=== PATIENT | male | born 1965 | race Caucasian/White ===

== ENCOUNTER 2016-10-25 07:41 | Day surgery (SDC) | payer OTHER ==
[~2016-10-25] VITALS: Ht 190.5 cm; Wt 104.3 kg
[~2016-10-25 07:41] MED LIST: 0.9% Sodium Chloride 1,000 ML IV SCH; Sodium Chloride LOK Flush 10 mL Syringe IV PRN; fentaNYL-PF 50 mCg/mL 2 mL Inj IVPUSH PRN
[2016-10-25] MEDS ORDERED: Propofol 10,000 mCg/mL 20 mL Inj ONE (07:42)
[2016-10-25] MEDS ORDERED: LISI1TAB7 PO (08:01)
[2016-10-25 08:04] VITALS: BP 142/87; PULSE 81; RESP 14; O2SAT 96
--- NOTE | 2016-10-25 09:38 | PCM.HPANE ---
Patient Data Date of Service: October 25, 2016 Surgeon Admitting Provider: Attending Provider:Antoni Sellers MD Primary Care Physician:Oumar Zhou MD Other Provider: Reason for Visit Screening Ht/WT & BMI Height (Feet): 6 Height (Inches): 3 Weight (Kilograms): 104.33 Body Mass Index 28.00 Allergies Coded Allergies: erythromycin base (Verified Allergy, Unknown, 10/23/16) Past Anesthesia History Anesthesia History: Denies:: Abnormal Airway, Difficult Intubation Diabetes History Hx Diabetes?: No MRSA MRSA: No Medications Hypertension Medication: Yes Home Meds Incl Beta Marisol: No Reported Medications Lisinopril / HCTZ 10-12.5 mg 1 Each Tablet1 Each PO DAILY Ref 0 10/25/16 History History of ENT Problems?: No HEENT History: Denies:: Abnormal Airway Difficult Intubation Hearing Problem Denture Type: None Teeth Condition: Within Normal Limits Hx of Heart Problems?: Yes Cardiovascular History: Positive for:: Hypertension Hx of Respiratory Problem?: No Respiratory History: Denies:: Use of C-PAP Machine Hx Neurologic Problems?: No Neurological History: Denies:: CVA Hx of GI Problems?: No Hx of Problems?: No HX of Peritoneal Dialysis: No Hx Musculoskeletal Problems?: No Hx of Psycho/Social Problems?: No Hx Surgeries?: Yes (hernia) Hx Any Other Health Problems?: Yes Hx Diabetes: No Hx Alcohol Use: Yes Stop/Bang Treated for Sleep Apnea?: No Do You Have a CPAP Machine?: No S-Snoring: Do You Snore Loudly: No T-Tired: feel tired, fatigued: No O-Obsered: Observed not breath: No P-Blood Pressure: treated: Yes B- Body Mass Index > 35 kg/m2: No A- Age over 50: Yes N- Neck Large Circumference: No G- Gender Male: Yes TERRELL Total Score: 3 Risk Assessment Category Category 1A: Patient has history of documented sleep apnea, and HAS NOT received any narcotic, sedative or anesthesia administration during this stay. Category 1B: Patient has history of documented sleep apnea, and HAS received any narcotic , sedative or anesthesia administration during this stay Category 2: Patient has SUSPECTED Obstructive Sleep Apnea, and HAS received any narcotic , sedative or anesthesia administration during this stay. Category 3: Patient has SUSPECTED Obstructive Sleep Apnea and HAS NOT received narcotic, sedative or anesthesia administration during this stay. Category 4: Outpatient in Procedural Areas with known sleep apnea or who screen positive for High Risk via the STOP/BANG questionnaire. Exam Exam Vital Signs Vital Signs Date Time Temp Pulse Resp B/P Pulse Ox O2 Delivery O2 Flow Rate FiO2 10/25/16 08:04 81 14 142/87 96 Room Air General Appearance: Cooperative HEENT/AIRWAY: Neck Movement (Normal) Lungs: Clear to Auscultation, Normal Air Movement Heart: Regular Rate/Rhythm, Normal S1, Normal S2 Meds/Labs/Diagnostics Admission Meds Current Medications Sodium Chloride (Normal Saline) 1,000 ml @ 10 mls/hr Q24H IV Last administered on 10/25/16t 08:03; Start 10/25/16 at 06:00 Plan Impression Patient chart reviewed, patient interviewed and anesthestic plan with risks, benefits, and alternatives discussed, and informed consent obtained. NPO per Anesth. Guidelines: Yes ASA Physical Status: ASA2 Mod Systemic Disease Anesthetic Plan: MAC Bene/Risks/Altern/Consents: Yes HP Complete Prior to Induction: Yes Other Rescue in middle of ongoing colonoscopy due to discomfort with hypoxia. Limited history obtained due to patient being sedated from 6 mg Versed an 100 mcg Fentanyl. History provided by endo nurse and Darshan Phillips MD October 25, 2016 09:38
[2016-10-25 10:00] VITALS: BP 117/81; PULSE 84; RESP 16; O2SAT 96
[2016-10-25 10:10] VITALS: BP 123/79; PULSE 81; RESP 16; O2SAT 96
[2016-10-25] MEDS ORDERED: Lactated Ringer's 1,000 ML IV SCH (10:15)
[2016-10-25] MEDS ORDERED: MetoCLOpramide 5 mg/mL 2 mL Inj IVPUSH PRN (10:15)
[2016-10-25] MEDS ORDERED: Ondansetron 2 mg/mL 2 mL Inj IVPUSH PRN (10:15)
--- NOTE | 2016-10-25 10:16 | PCM.ANEP1 ---
Post Anesthesia PACU Phase 1 Assessment Date of Service: October 25, 2016 Vital Signs Vital Signs Date Time Temp Pulse Resp B/P Pulse Ox O2 Delivery O2 Flow Rate FiO2 10/25/16 10:10 81 16 123/79 96 Room Air 10/25/16 10:00 84 16 117/81 96 Room Air 10/25/16 08:04 81 14 142/87 96 Room Air Anesthetic Administered: MAC Level of Alertness: Awake, talking REIS's with Equal Strength: Yes Pain: No Nausea or Vomiting: No CV Function & Hydration Stable: No Airway Device: Oxygen Delivery: Room Air Lungs: Normal Air Movement PACU Phase 2 Assessment Complications: Yes (mild hypoxemia during moderate sedation requiring anesthesia rescue) Follow up Care: No Patient Instructions Provided: N/A Darshan Benoit MD October 25, 2016 10:16
--- NOTE | 2016-10-25 13:27 | ENDO ---
[address] [address] ENDOSCOPY PROCEDURE PATIENT: ELANA DELANEY : 1965 MR#: [id number] ADMIT: 10/25/2016 JOB ID: [id number] DATE: 10/25/2016 PROCEDURE: Colonoscopy. INDICATIONS: Screening. The patient's ASA classification is 2. Mallampati score is 2. MEDICATIONS: 1. Versed 6 mg. 2. Fentanyl 100 mcg. 3. In addition, rescue anesthesia was needed secondary to patient intolerance. INSTRUMENT USED: PCF H 180 AL PREPARATION QUALITY: Was good. PROCEDURE DETAILS: After informed consent was obtained, the patient was brought into the GI suite, where he was placed on oxygen via nasal cannula and monitored with continuous pulse oximeter, telemetry and blood pressure monitoring. A time-out was performed. Then, he was placed in the left lateral decubitus position and medications were administered for sedation. Digital rectal examination was performed, which revealed an enlarged prostate but otherwise unremarkable. The colonoscope was then inserted into the rectum and advanced to approximately 40 cm. At this point, despite increasing sedation, we were unable to advance the scope secondary to the patient's intolerance from pain. As we withdrew the scope, the patient desaturated with oxygen saturations in the high 80s. And at this point, I felt I could not give him further sedation to proceed. At this point, Anesthesia was called. She was then able to be sedated adequately with stable vital signs and then we were able to complete the colonoscopy as we advanced from the rectum to the cecum without difficulty. Once the cecum was reached, the colonoscope was withdrawn back into the rectum as the mucosa and lumen were examined. In the rectum, retroflexion was performed. Following retroflexion, remaining air in the rectum was suctioned and procedure was completed. FINDINGS: 1. In the descending colon, there was a 6 mm sessile polyp that was removed with a hot snare. 2. In the transverse colon, there was an approximately 6 mm sessile polyp that was removed with a hot snare. IMPRESSION: 1. Descending colon polyp. 2. Transverse polyp. RECOMMENDATIONS: 1. Avoid nonsteroidal anti-inflammatory drugs and anticoagulants for 72 hours. 2. Repeat colonoscopy in five years. COMPLICATIONS: None. ESTIMATED BLOOD LOSS: 0.
--- NOTE | 2016-10-30 16:02 | PATH ---
SURGICAL PATHOLOGY Attending Physician:Oz Love CASE STATUS: Signed Out PATIENT NAME: ELANA DELANEY PID: [id number] : 1965 DATE COLLECTED:10/25/2016 22:36 SPECIMEN: 1: Colon, Biopsy 2: Colon, Biopsy CLINICAL HISTORY: POLYPS 1). DESCENDING COLON POLYP 2). TRANSVERSE COLON POLYP FINAL DIAGNOSIS: 1. Descending Colon, Polyp, Biopsy: Tubular adenoma; negative for high-grade dysplasia. 2. Transverse Colon, Polyp, Biopsy: Sessile serrated adenoma. ICD10: K63.5 GROSS DESCRIPTION: Received are two formalin-filled containers, both labeled with the patient' s name: 1. Received in formalin, labeled with the patient' s name and "descending colon polyp", is one fragment of carvajal, soft tissue measuring 0.3 x 0.2 x 0.1 cm. The fragment is totally submitted in cassette 1A. 2. Received in formalin, labeled with the patient' s name and "transverse colon polyp", is one fragment of carvajal, soft tissue measuring 0.1 x 0.1 x 0.1 cm. The fragment is totally submitted in cassette 2A. ([id number]) ICD-9 CODES: CPT CODES: 1: 94110 2: [id number] Electronically Signed Out Sandi Pham MD [facility] [address], [place] [address] Technical component performed at [facility], [place], [facility] [address], [place], [address]
== END 2016-10-25 23:59 | disposition home or self-care (01) ==
LOC: END 07:41
PROVIDERS: ATTEND Internal Medicine Gastroenterology
DX: Z12.11 Encounter for screening for malignant neoplasm of colon (principal); D12.4 Benign neoplasm of descending colon; D12.3 Benign neoplasm of transverse colon
CPT/HCPCS: 45385; 99153; G0500; J7030